=== PATIENT | female | born 1995 | race Caucasian/White ===

== ENCOUNTER 2018-11-15 19:16 | Emergency (ER) | payer OTHER ==
[~2018-11-15] VITALS: Ht 165.1 cm; Wt 66.0 kg
[2018-11-15 20:43] VITALS: Ht 165.1 cm; Wt 66.0 kg
[2018-11-15] MEDS ORDERED: ACETAMINOPHEN 500 MG TAB PO STA (21:48)
[2018-11-15] MEDS ORDERED: CEFTRIAXONE 1 GM INJ IM ONE (22:00)
[2018-11-15] MEDS ORDERED: LIDOCAINE 1% (MPF) 5 ML VIAL ONE (22:04)
[2018-11-15 22:38] VITALS: BP 121/66; PULSE 125; RESP 20
[2018-11-15] MEDS ORDERED: CIPR500T4 PO (22:43)
[2018-11-15] MEDS ORDERED: IBUP-1542 PO (22:43)
--- NOTE | 2018-11-16 02:27 | ERD ---
ER Documentation Chief Complaint Chief Complaint DYSURIA/HEMATURIA X 1 WEEK HPI 23-year-old female is complaining of hematuria and dysuria times 1 week. Patient reports suprapubic pain, urinary frequency, urgency, with small amounts as well. Patient states that her symptom was gradually improving, and resolved yesterday. However, today symptoms returned. Patient reports bilateral flank pain. She did not take any medications at home. Never had a UTI before. Patient is currently sexually active. ROS All systems reviewed and are negative except as per history of present illness. Medications Home Meds Active Scripts Ibuprofen* (Motrin*) 600 Mg Tab, 600 MG PO Q6H PRN for PAIN AND OR ELEVATED TEMP, #30 TAB Prov:NOEL HILL. INSOLE RASPER 11/15/18 Ciprofloxacin Hcl* (Ciprofloxacin Hcl*) 500 Mg Tablet, 500 MG PO BID for 10 Days, TAB Prov:NOEL HILL. INSOLE RASPER 11/15/18 Allergies Allergies: Coded Allergies: No Known Allergy (Unverified , 11/15/18) PMhx/Soc Medical and Surgical Hx: pt denies Surgical Hx Hx Neurological Disorder: Yes (SEIZURES) Hx Miscellaneous Medical Probl: No Hx Alcohol Use: Yes Hx Substance Use: No Hx Tobacco Use: No Smoking Status: Never smoker Physical Exam Vitals Vital Signs Date Temp Pulse Resp B/P (MAP) Pulse Ox O2 O2 Flow FiO2 Time Delivery Rate 11/15/18 100.6 125 20 121/66 98 Room Air 22:38 (84) 11/15/18 102.9 125 16 124/60 98 20:43 (81) Physical Exam General: Well-developed, well-nourished, conscious and coherent, in no distress Skin: Warm and dry without rash, good texture and turgor Head: Normocephalic without evidence of trauma Chest: Normal AP diameter. Good expansion without retractions. Nontender. Lungs are clear to auscultate bilaterally with good tidal volume Heart: Regular rate and rhythm. No murmur, rub, or gallops heard Abdomen: Soft, suprapubic tenderness without masses, guarding, or rebound. Bowel sounds are active. No hepatosplenomegaly Back: Without spinal or CVA tenderness Extremities: Full range of motion. Good strength bilaterally. No erythema, ecchymosis, or edema. Peripheral pulses are intact. Sensation intact Neuro: Alert and oriented 4, GCS 15. Cranial nerves grossly intact. Moves all extremities. Speech clear. Gait normal Results 24 hrs Laboratory Tests Test 11/15/18 21:27 11/15/18 21:32 Bedside Urine pH (LAB) 6.0 Bedside Urine Protein (LAB) 3+ Bedside Urine Glucose (UA) Negative Bedside Urine Ketones (LAB) Trace Bedside Urine Blood 2+ Bedside Urine Nitrite (LAB) Negative Bedside Urine Leukocyte Esterase (L 1+ POC Beta HCG, Qualitative NEGATIVE Current Medications Medications Dose Sig/Sam Start Time Status Last (Trade) Ordered Route PRN Stop Time Admin Dose Reason Admin 500 mg ONCE STAT 11/15/18 DC 11/15/18 Acetaminophen PO 21:48 22:06 (Tylenol 11/15/18 Tab) 21:49 Ceftriaxone 1 gm ONCE ONCE 11/15/18 DC 11/15/18 Sodium IM 22:00 22:06 (Rocephin) 11/15/18 22:01 Lidocaine 5 ml STK-MED 11/15/18 DC (Xylocaine ONCE .ROUTE 22:04 1% (Mpf)) 11/15/18 22:05 Procedures/MDM 23-year-old female presents the ED with UTI symptoms times 1 week. Urine dip shows 1+ leukocyte, negative nitrite, 2+ blood. Patient does have a urinary tract infection. Patient is also febrile with temp of 2.9 presents the patient. Although she did not have a CVA tenderness, I am concerned for pyelonephritis. Patient given Tylenol in the ED for fever reduction. Rocephin 1 g IM also given to the patient in the ED. Patient reports feeling better after medications. Although patient met sirs criteria on presentation, patient does not look sick. Septic workup not obtained. Patient appears well, stable for discharge and outpatient management. Medical decision making shared with patient and family. Education provided to patient and family. Patient and family expressed understanding of the plan. Medications on discharge: Ibuprofen, Cipro Follow-up: Primary care provider in 2-3 days or return to ED if worse. Disclaimer: Inadvertent spelling and grammatical errors are likely due to EHR/dictation software use and do not reflect on the overall quality of patient care. Also, please note that the electronic time recorded on this note does not necessarily reflect the actual time of the patient encounter. Departure Diagnosis: Primary Impression: UTI (urinary tract infection) Condition: Stable Patient Instructions: Understanding Urinary Tract Infections (UTIs) Referrals: [facility] YOU HAVE RECEIVED A MEDICAL SCREENING EXAM AND THE RESULTS INDICATE THAT YOU DO NOT HAVE A CONDITION THAT REQUIRES URGENT TREATMENT IN THE EMERGENCY DEPARTMENT. FURTHER EVALUATION AND TREATMENT OF YOUR CONDITION CAN WAIT UNTIL YOU ARE SEEN IN YOUR DOCTORS OFFICE WITHIN THE NEXT 1-2 DAYS. IT IS YOUR RESPONSIBILITY TO MAKE AN APPOINTMENT FOR FOLOW-UP CARE. IF YOU HAVE A PRIMARY DOCTOR --you should call your primary doctor and schedule an appointment IF YOU DO NOT HAVE A PRIMARY DOCTOR YOU CAN CALL OUR PHYSICIAN REFERRAL HOTLINE AT IF YOU CAN NOT AFFORD TO SEE A PHYSICIAN YOU CAN CHOSE FROM THE FOLLOWING [facility] [address] [facility]. [facility] [address] [facility]. [facility] [address] [facility]. [facility] [address] [facility]. [facility] [address] [facility]. [facility]. [address] Additional Instructions: Call your primary care doctor TOMORROW for an appointment during the next 2-3 days.See the doctor sooner or return here if your condition worsens before your appointment time. NOEL HILL NP Nov 16, 2018 02:27
== END 2018-11-15 22:57 | disposition home or self-care (01) ==
LOC: FTE 19:16
DX: N39.0 Urinary tract infection, site not specified (principal); R40.2412 Glasgow coma scale score 13-15, at arrival to emergency department
CPT/HCPCS: 81003; 81025; 96372; 99284; J0696